=== PATIENT | male | born 1950 | race African-American/Black ===

== ENCOUNTER 2018-04-17 12:04 | Emergency (ER) | payer MEDICARE, MEDICAID ==
[~2018-04-17] VITALS: Ht 180.3 cm; Wt 75.0 kg
[~2018-04-17 12:04] MED LIST: AMLO5TAB88; BENA10TA3; MYCOC15; SIMV10TA2 PO
[2018-04-17 19:49] VITALS: BP 151/76
== END 2018-04-17 21:00 | disposition home or self-care (01) ==
LOC: ER 12:04
DX: R33.9 Retention of urine, unspecified (principal); J45.909 Unspecified asthma, uncomplicated; I10 Essential (primary) hypertension; I25.10 Atherosclerotic heart disease of native coronary artery without angina pectoris; Z86.73 Personal history of transient ischemic attack (TIA), and cerebral infarction without residual deficits
CPT/HCPCS: 51702; 99284

== ENCOUNTER 2018-05-19 15:39 | Emergency (ER) | payer MEDICARE, MEDICAID ==
[~2018-05-19] VITALS: Ht 167.6 cm; Wt 77.0 kg
[~2018-05-19 15:39] MED LIST changes: +BENA10TA10; -BENA10TA3
[2018-05-19 15:58] VITALS: BP 153/86
== END 2018-05-19 22:00 | disposition left against medical advice (07) ==
LOC: ER 17:57
DX: Z46.6 Encounter for fitting and adjustment of urinary device (principal)
CPT/HCPCS: 99281

== ENCOUNTER 2018-05-20 08:43 | Emergency (ER) | payer MEDICARE, MEDICAID ==
[~2018-05-20] VITALS: Ht 177.8 cm; Wt 75.0 kg
[2018-05-20 11:40] VITALS: BP 132/79
== END 2018-05-20 12:05 | disposition home or self-care (01) ==
LOC: ER 08:43
DX: T83.091A Other mechanical complication of indwelling urethral catheter, initial encounter (principal); R33.9 Retention of urine, unspecified; G82.20 Paraplegia, unspecified; J45.909 Unspecified asthma, uncomplicated; I25.10 Atherosclerotic heart disease of native coronary artery without angina pectoris; I10 Essential (primary) hypertension; F17.200 Nicotine dependence, unspecified, uncomplicated; Y92.89 Other specified places as the place of occurrence of the external cause; Z86.73 Personal history of transient ischemic attack (TIA), and cerebral infarction without residual deficits; Z79.899 Other long term (current) drug therapy
CPT/HCPCS: 51702; 99284; A4315

== ENCOUNTER 2018-05-24 14:20 | Emergency (ER) | payer MEDICARE, MEDICAID ==
[~2018-05-24] VITALS: Ht 165.1 cm; Wt 64.0 kg
[2018-05-24 15:11] VITALS: BP 108/63
== END 2018-05-24 15:57 | disposition left against medical advice (07) ==
LOC: ER 15:41
DX: T83.038A Leakage of other urinary catheter, initial encounter (principal); I10 Essential (primary) hypertension; Y84.6 Urinary catheterization as the cause of abnormal reaction of the patient, or of later complication, without mention of misadventure at the time of the procedure; Z79.899 Other long term (current) drug therapy; Y92.89 Other specified places as the place of occurrence of the external cause
CPT/HCPCS: 99281; 99284

== ENCOUNTER 2018-06-17 10:10 | Emergency (ER) | payer MEDICARE, MEDICAID ==
[~2018-06-17] VITALS: Ht 180.3 cm; Wt 68.0 kg
[2018-06-17 12:37] LABS: CLARITY URINE CLEAR (CLEAR); COLOR URINE YELLOW (YELLOW); KETONES URINE NEGATIVE (NEGATIVE); LEUKOCYTE ESTERASE URINE TRACE (NEGATIVE); NITRITE URINE POSITIVE (NEGATIVE); OCCULT BLOOD URINE 2+ (NEGATIVE); PROTEIN URINE TRACE (NEGATIVE); SPECIFIC GRAVITY URINE 1.015 (1.005-1.030)
[2018-06-17 13:00] VITALS: BP 131/72
[2018-06-17] MEDS ORDERED: CEFTRIAXONE 1 G PREMIX 50 ML IV ONE (13:15)
== END 2018-06-17 13:42 | disposition home or self-care (01) ==
LOC: ER 10:10
DX: N39.0 Urinary tract infection, site not specified (principal); J45.909 Unspecified asthma, uncomplicated; I10 Essential (primary) hypertension; F17.200 Nicotine dependence, unspecified, uncomplicated; F12.10 Cannabis abuse, uncomplicated
CPT/HCPCS: 51702; 81003; 87086; 99284; A4315

== ENCOUNTER 2018-07-07 13:04 | Emergency (ER) | payer MEDICARE, MEDICAID ==
[~2018-07-07] VITALS: Ht 170.2 cm; Wt 74.0 kg
[2018-07-07 14:21] LABS: CLARITY URINE CLEAR (CLEAR); KETONES URINE NEGATIVE (NEGATIVE); LEUKOCYTE ESTERASE URINE NEGATIVE (NEGATIVE); NITRITE URINE NEGATIVE (NEGATIVE); OCCULT BLOOD URINE 1+ (NEGATIVE); PROTEIN URINE NEGATIVE (NEGATIVE); SPECIFIC GRAVITY URINE 1.004 (1.005-1.030); UROBILINOGEN URINE 0.2 E.U./dL (0.2-1.0)
[2018-07-07 14:25] LABS: COLOR URINE PALE YELLOW (YELLOW)
[2018-07-07 15:46] VITALS: BP 141/78
== END 2018-07-07 15:48 | disposition home or self-care (01) ==
LOC: ER 13:04
DX: N40.1 Benign prostatic hyperplasia with lower urinary tract symptoms (principal); R33.8 Other retention of urine; J45.909 Unspecified asthma, uncomplicated; I10 Essential (primary) hypertension; F17.200 Nicotine dependence, unspecified, uncomplicated; F12.10 Cannabis abuse, uncomplicated; Z87.828 Personal history of other (healed) physical injury and trauma; Z98.890 Other specified postprocedural states
CPT/HCPCS: 51702; 81003; 99284; A4315

== ENCOUNTER 2018-07-14 04:34 | Emergency (ER) | payer MEDICARE, MEDICAID ==
[~2018-07-14] VITALS: Ht 172.7 cm; Wt 73.0 kg
[2018-07-14] MEDS ORDERED: ACETAMINOPHEN WITH CODEINE 300/30MG TABLET PO ONE (06:15)
[2018-07-14 07:42] LABS: CLARITY URINE CLEAR (CLEAR); COLOR URINE YELLOW (YELLOW); KETONES URINE NEGATIVE (NEGATIVE); LEUKOCYTE ESTERASE URINE 1+ (NEGATIVE); NITRITE URINE NEGATIVE (NEGATIVE); OCCULT BLOOD URINE TRACE (NEGATIVE); PROTEIN URINE NEGATIVE (NEGATIVE); SPECIFIC GRAVITY URINE 1.016 (1.005-1.030)
[2018-07-14 11:38] VITALS: BP 178/89
== END 2018-07-14 11:46 | disposition home or self-care (01) ==
LOC: ER 04:53
DX: S02.2XXA Fracture of nasal bones, initial encounter for closed fracture (principal); N39.0 Urinary tract infection, site not specified; B37.9 Candidiasis, unspecified; I10 Essential (primary) hypertension; N40.0 Benign prostatic hyperplasia without lower urinary tract symptoms; J45.909 Unspecified asthma, uncomplicated; F12.10 Cannabis abuse, uncomplicated; Z99.3 Dependence on wheelchair; Y04.0XXA Assault by unarmed brawl or fight, initial encounter; Y93.89 Activity, other specified; Y92.018 Other place in single-family (private) house as the place of occurrence of the external cause
CPT/HCPCS: 51702; 70450; 70486; 81003; 99285; A4315

== ENCOUNTER 2019-04-05 09:08 | Emergency (ER) | payer MEDICARE, MEDICAID ==
[~2019-04-05] VITALS: Ht 172.7 cm; Wt 84.0 kg
[2019-04-05 11:21] LABS: CLARITY URINE CLEAR (CLEAR); COLOR URINE YELLOW (YELLOW); KETONES URINE NEGATIVE (NEGATIVE); LEUKOCYTE ESTERASE URINE 2+ (NEGATIVE); NITRITE URINE NEGATIVE (NEGATIVE); OCCULT BLOOD URINE TRACE (NEGATIVE); PROTEIN URINE NEGATIVE (NEGATIVE); SPECIFIC GRAVITY URINE 1.004 (1.005-1.030); UROBILINOGEN URINE 0.2 E.U./dL (0.2-1.0)
[2019-04-05 12:02] VITALS: BP 160/83
[2019-04-18] MEDS ORDERED: NAPR-681 MT (17:15)
[2019-04-18] MEDS ORDERED: BACL-141 MT (17:15)
[2019-04-18] MEDS ORDERED: FAMO20TA8 MT (17:15)
[2019-04-18] MEDS ORDERED: GABA800T97 MT (17:15)
== END 2019-04-05 12:12 | disposition home or self-care (01) ==
LOC: ER 09:08
DX: Z46.6 Encounter for fitting and adjustment of urinary device (principal); N39.0 Urinary tract infection, site not specified; I10 Essential (primary) hypertension; J45.909 Unspecified asthma, uncomplicated; F17.210 Nicotine dependence, cigarettes, uncomplicated; Z71.6 Tobacco abuse counseling
CPT/HCPCS: 99283; 99406

== ENCOUNTER 2019-04-15 09:34 | Emergency (ER) | payer MEDICARE, MEDICAID ==
[~2019-04-15] VITALS: Ht 167.6 cm; Wt 82.0 kg
[2019-04-15] MEDS ORDERED: KETOROLAC 60MG/2ML VIAL IM STA (12:01)
[2019-04-15 13:21] VITALS: BP 140/88
[2019-04-18] MEDS ORDERED: NAPR-681 MT (17:15)
[2019-04-18] MEDS ORDERED: GABA800T97 MT (17:15)
[2019-04-18] MEDS ORDERED: BACL-141 MT (17:15)
[2019-04-18] MEDS ORDERED: FAMO20TA8 MT (17:15)
== END 2019-04-15 13:22 | disposition home or self-care (01) ==
LOC: ER 09:34
DX: M25.511 Pain in right shoulder (principal); M25.512 Pain in left shoulder; M25.571 Pain in right ankle and joints of right foot; G31.89 Other specified degenerative diseases of nervous system; I10 Essential (primary) hypertension; V03.90XA Pedestrian on foot injured in collision with car, pick-up truck or van, unspecified whether traffic or nontraffic accident, initial encounter; Y93.89 Activity, other specified; Y92.89 Other specified places as the place of occurrence of the external cause; Y99.8 Other external cause status; Z79.899 Other long term (current) drug therapy
CPT/HCPCS: 70450; 72125; 73030; 73600; 73630; 96372; 99284; J1885

== ENCOUNTER 2019-10-29 09:20 | Emergency (ER) | payer MEDICARE, MEDICAID ==
[~2019-10-29] VITALS: Ht 167.6 cm; Wt 91.0 kg
[~2019-10-29 09:20] MED LIST changes: +BACL-141 MT; -BENA10TA10; +BENA10TA74; +FAMO20TA8 MT; +GABA800T97 MT; -MYCOC15; +NAPR-681 MT; -SIMV10TA2 PO
[2019-10-29 10:00] VITALS: BP 174/96
[2019-10-29 12:39] LABS: CLARITY URINE CLEAR (CLEAR); COLOR URINE YELLOW (YELLOW); KETONES URINE NEGATIVE (NEGATIVE); LEUKOCYTE ESTERASE URINE 2+ (NEGATIVE); NITRITE URINE NEGATIVE (NEGATIVE); OCCULT BLOOD URINE 2+ (NEGATIVE); PH URINE 6.5 (4.5-8.0); PROTEIN URINE NEGATIVE (NEGATIVE); SPECIFIC GRAVITY URINE 1.011 (1.005-1.030); UROBILINOGEN URINE 0.2 E.U./dL (0.2-1.0)
== END 2019-10-29 12:55 | disposition home or self-care (01) ==
LOC: ER 09:53
DX: N39.0 Urinary tract infection, site not specified (principal); I10 Essential (primary) hypertension; J45.909 Unspecified asthma, uncomplicated; F17.200 Nicotine dependence, unspecified, uncomplicated; Z79.899 Other long term (current) drug therapy
CPT/HCPCS: 81003; 99283

== ENCOUNTER 2021-11-10 08:43 | Emergency (ER) | payer MEDICARE, MEDICAID ==
[~2021-11-10] VITALS: Ht 172.7 cm; Wt 80.0 kg
[2021-11-10 10:23] LABS: BASOPHILS % 0.5 % (0.0-2.0); CHLORIDE 104 mEq/L (98-107); EOSINOPHILS % 0.3 % (0.0-5.0); HEMATOCRIT. 47.5 % (42.0-52.0); HEMOGLOBIN. 16.2 g/dL (14.0-18.0); LYMPHOCYTES % 14.8 % (20.0-50.0); MEAN CORPUSCULAR HEMOGLOBIN 32.4 pg (28.0-32.0); MEAN CORPUSCULAR VOLUME 95.1 fL (80.0-94.0); MEAN PLATELET VOLUME 8.5 fl (7.4-10.4); NEUTROPHILS % 78.4 % (40.0-76.0); PLATELET 199 x1000/uL (130-400); RED CELL DISTRIBUTION WIDTH 13.1 % (11.6-14.6)
[2021-11-10 10:54] LABS: CLARITY URINE CLOUDY (CLEAR); COLOR URINE YELLOW (YELLOW); KETONES URINE NEGATIVE (NEGATIVE); LEUKOCYTE ESTERASE URINE 3+ (NEGATIVE); NITRITE URINE POSITIVE (NEGATIVE); OCCULT BLOOD URINE 2+ (NEGATIVE); PH URINE 5.5 (4.5-8.0); PROTEIN URINE TRACE (NEGATIVE); SPECIFIC GRAVITY URINE 1.013 (1.005-1.030)
[2021-11-10] MEDS ORDERED: CEFTRIAXONE 1 G PREMIX 50 ML IV ONE (12:00)
[2021-11-10] MEDS ORDERED: CIPR-263 MT (14:43)
[2021-11-10 16:30] VITALS: BP 135/70
[2021-11-10] MEDS ORDERED: IPRATROPIUM BROMIDE (0.02%) 0.5MG/2.5ML NEB HHN ONE (18:30)
[2021-11-10] MEDS ORDERED: ALBUTEROL (0.5%) 2.5MG/0.5ML NEB HHN ONE (18:30)
[2021-11-10] MEDS ORDERED: P50 MT (18:38)
[2021-11-10] MEDS ORDERED: PREDNISONE 20MG TABLET PO ONE (18:45)
[2021-11-11] MEDS ORDERED: CIPR-263 MT (11:01)
== END 2021-11-10 19:04 | disposition home or self-care (01) ==
LOC: ER 08:56
DX: N45.3 Epididymo-orchitis (principal); N39.0 Urinary tract infection, site not specified; J44.1 Chronic obstructive pulmonary disease with (acute) exacerbation; I10 Essential (primary) hypertension; J45.909 Unspecified asthma, uncomplicated; F17.210 Nicotine dependence, cigarettes, uncomplicated
CPT/HCPCS: 36415; 76870; 80053; 81003; 85025; 87040; 87077; 87086; 87186; 93976; 94640; 96365; 99285; J0696; J7512

== ENCOUNTER 2025-05-23 15:21 | Emergency (ER) | payer MEDICARE, MEDICAID ==
[~2025-05-23] VITALS: Ht 172.7 cm; Wt 72.0 kg
[~2025-05-23 15:21] MED LIST changes: +ALBU18HF2 PO; -AMLO5TAB88; +AMLO5TAB88 MT; +AMOX1TAB16 PO; -BENA10TA74; +DICL100G58 TP; +FINA5TAB11 MT; +GABA-290 PO; -GABA800T97 MT; +LEVO750T68 MT; -NAPR-681 MT; +TAMS-54 MT
[2025-05-23 15:26] VITALS: O2SAT 97
[2025-05-23 17:46] VITALS: BP 130/100; PULSE 66; RESP 16; TEMP 37.1; O2SAT 97
== END 2025-05-23 18:16 | disposition home or self-care (01) ==
LOC: ER 15:21 → CANBEDREQ 17:37 → ER 18:16
DX: T83.011A Breakdown (mechanical) of indwelling urethral catheter, initial encounter (principal); E11.9 Type 2 diabetes mellitus without complications; I10 Essential (primary) hypertension; J44.89 Other specified chronic obstructive pulmonary disease; N40.0 Benign prostatic hyperplasia without lower urinary tract symptoms; Z79.899 Other long term (current) drug therapy; Y92.89 Other specified places as the place of occurrence of the external cause
CPT/HCPCS: 99283

== ENCOUNTER 2025-06-26 09:07 | Inpatient (IN) | payer MEDICARE, MEDICAID ==
[2025-06-26] VITALS (8 sets, daily range): BP systolic 125–148; BP diastolic 72–85; PULSE 55–80; RESP 16–18; TEMP 36–36.418; O2SAT 93–100
[~2025-06-26] VITALS: Ht 175.3 cm; Wt 56.7 kg
[~2025-06-26 09:07] MED LIST changes: -AMOX1TAB16 PO; +LEVO-65 MT; -LEVO750T68 MT
[2025-06-26] MEDS: IPRATROPIUM BROMIDE (0.02%) 0.5MG/2.5ML NEB HHN SCH (09:53)
[2025-06-26] MEDS: ALBUTEROL (0.083%) 2.5MG/3ML NEB HHN SCH (09:53)
[2025-06-26 10:17] LABS: BASOPHILS % 0.8 % (0.0-2.0); EOSINOPHILS % 2.7 % (0.0-5.0); HEMATOCRIT. 42.2 % (42.0-52.0); HEMOGLOBIN. 13.8 g/dL (14.0-18.0); LYMPHOCYTES % 29.4 % (20.0-50.0); MEAN PLATELET VOLUME 8.3 fl (7.4-10.4); MONOCYTES % 6.6 % (2.0-8.0); NEUTROPHILS % 60.5 % (40.0-76.0); PLATELET 190 x1000/uL (130-400); RED BLOOD CELL COUNT 4.45 mill/uL (4.7-6.1); RED CELL DISTRIBUTION WIDTH 14.9 % (11.6-14.6)
[2025-06-26 10:29] LABS: CREATININE 0.8 mg/dL (0.6-1.3); UREA NITROGEN BLOOD 7 mg/dL (9-23)
[2025-06-26 10:30] LABS: TROPONIN I HIGH SENSITIVITY 16 ng/L (3.0-53)
[2025-06-26] MEDS: METHYLPREDNISOLONE SOD SUCC 125MG/2ML (ACT-O-VIAL) IV ONE (10:30)
[2025-06-26] MEDS ORDERED: ONDANSETRON HCL 4MG/2ML INJ IV PRN (11:15)
[2025-06-26] MEDS ORDERED: LEVOFLOXACIN 500MG PREMIX 100 ML IV SCH (11:15)
[2025-06-26] MEDS ORDERED: HYDROCODONE/ACETAMINOPHEN 5/325MG TABLET PO PRN (11:15)
[2025-06-26] MEDS ORDERED: ACETAMINOPHEN 325MG TABLET PO PRN (11:15)
[2025-06-26] MEDS ORDERED: MAGNESIUM/ALUMINUM HYDROXIDE/SIMETHICONE 30ML UDC PO PRN (11:15)
[2025-06-26] MEDS: CLONIDINE 0.1MG TABLET PO PRN (11:24)
[2025-06-26] MEDS: DEXT 5%/0.45% NACL 1000ML 1,000 ML IV SCH (11:57)
[2025-06-26] MEDS ORDERED: METHYLPREDNISOLONE SOD SUCC 40MG/ML (ACT-O-VIAL) IV SCH (12:00)
[2025-06-26] MEDS ORDERED: NALOXONE HCL 0.4MG/ML VIAL IV PRN (12:15)
[2025-06-26] MEDS: ENOXAPARIN 40MG/0.4ML SYR SUBCUT SCH (13:00)
[2025-06-26 13:01] LABS: TROPONIN I HIGH SENSITIVITY 6 ng/L (3.0-53)
[2025-06-26] MEDS: PANTOPRAZOLE SODIUM 40 MG/VIAL IV SCH (14:59)
[2025-06-26] MEDS: LEVOFLOXACIN 750MG PREMIX 150 ML IV SCH (14:59)
[2025-06-26] MEDS: METHYLPREDNISOLONE SOD SUCC 40MG/ML (ACT-O-VIAL) IV SCH (15:00)
[2025-06-26 16:46] LABS: TROPONIN I HIGH SENSITIVITY 11 ng/L (3.0-53)
[2025-06-26] MEDS: IPRATROPIUM/ALBUTEROL 0.5-3(2.5)MG/3ML NEB NEB SCH (17:06)
[2025-06-26] MEDS ORDERED: BACLOFEN 10MG TABLET PO PRN (17:30)
[2025-06-26] MEDS: PNEUMOCOCCAL 20-VAL CONJ-DIP CRM 0.5ML IM ONE (17:30)
[2025-06-26] MEDS: GABAPENTIN 300MG CAPSULE PO SCH (21:10)
[2025-06-27] VITALS: BP 149/73; PULSE 63; RESP 17; TEMP 35.7; O2SAT 97
[2025-06-27 04:00] VITALS: BP 167/80; PULSE 64; RESP 16; TEMP 36.2; O2SAT 98
[2025-06-27 06:57] LABS: BASOPHILS % 0.2 % (0.0-2.0); EOSINOPHILS % 0.0 % (0.0-5.0); HEMATOCRIT. 35.6 % (42.0-52.0); HEMOGLOBIN. 11.9 g/dL (14.0-18.0); LYMPHOCYTES % 14.6 % (20.0-50.0); MEAN PLATELET VOLUME 8.7 fl (7.4-10.4); MONOCYTES % 2.5 % (2.0-8.0); NEUTROPHILS % 82.7 % (40.0-76.0); PLATELET 179 x1000/uL (130-400); RED BLOOD CELL COUNT 3.81 mill/uL (4.7-6.1); RED CELL DISTRIBUTION WIDTH 14.2 % (11.6-14.6)
[2025-06-27 07:20] LABS: TROPONIN I HIGH SENSITIVITY 6 ng/L (3.0-53)
[2025-06-27 07:25] LABS: CREATININE 0.7 mg/dL (0.6-1.3); UREA NITROGEN BLOOD 10 mg/dL (9-23)
[2025-06-27 08:00] VITALS: BP 156/75; PULSE 58; RESP 18; TEMP 36.4; O2SAT 100
[2025-06-27] MEDS: TAMSULOSIN HCL 0.4MG SR CAPSULE PO SCH (09:51)
[2025-06-27] MEDS: FINASTERIDE 5MG TABLET PO SCH (09:52)
[2025-06-27] MEDS: AMLODIPINE 5MG TABLET PO SCH (09:52)
[2025-06-27 12:00] VITALS: BP 141/84; PULSE 59; RESP 18; TEMP 36.4; O2SAT 100
[2025-06-27 16:00] VITALS: BP 146/78; PULSE 66; RESP 18; TEMP 36.4; O2SAT 100
[2025-06-27] MEDS: POTASSIUM CHLORIDE 20MEQ TABLET SR PO SCH (18:20)
[2025-06-27 19:56] LABS: CLARITY URINE TURBID (CLEAR); COLOR URINE ORANGE (YELLOW); GLUCOSE URINE TRACE (NEGATIVE); KETONES URINE NEGATIVE (NEGATIVE); LEUKOCYTE ESTERASE URINE 3+ (NEGATIVE); NITRITE URINE POSITIVE (NEGATIVE); OCCULT BLOOD URINE NEGATIVE (NEGATIVE); PH URINE >=9.0 (4.5-8.0); PROTEIN URINE 3+ (NEGATIVE); SPECIFIC GRAVITY URINE 1.021 (1.005-1.030); UROBILINOGEN URINE 1.0 E.U./dL (0.2-1.0)
[2025-06-27 20:00] VITALS: BP 151/75; PULSE 61; RESP 19; TEMP 36.2; O2SAT 97
[2025-06-27 20:09] LABS: *AMPHETAMINES SCREEN URINE NEGATIVE (NEGATIVE); *BENZODIAZEPINES SCREEN URINE NEGATIVE (NEGATIVE)
[2025-06-27 20:10] LABS: *BARBITURATES SCREEN URINE NEGATIVE (NEGATIVE); *COCAINE SCREEN URINE PRESUMPTIVE POSITIVE (NEGATIVE); CANNABINOID URINE SCREEN PRESUMPTIVE POSITIVE (NEGATIVE); ECSTASY MDMA SCREEN URINE NEGATIVE (NEGATIVE); METHADONE URINE SCREEN NEGATIVE (NEGATIVE); OPIATES URINE SCREEN NEGATIVE (NEGATIVE); PHENCYCLIDINE URINE SCREEN NEGATIVE (NEGATIVE)
[2025-06-27 20:20] LABS: BACTERIA URINE 4+; RBC URINE 0-2 /hpf (0-2); SQUAMOUS EPITHELIAL CELL URINE FEW /lpf (RARE/1+)
[2025-06-27] MEDS: MORPHINE SULFATE 4 MG/ML INJ (FOR IV/IM USE) IV PRN (20:41)
[2025-06-28] VITALS (10 sets, daily range): BP systolic 132–182; BP diastolic 66–89; PULSE 55–77; RESP 16–19; TEMP 36.2–36.9; O2SAT 94–100
[2025-06-28 09:19] LABS: BASOPHILS % 0.1 % (0.0-2.0); EOSINOPHILS % 0.0 % (0.0-5.0); HEMATOCRIT. 41.5 % (42.0-52.0); HEMOGLOBIN. 13.8 g/dL (14.0-18.0); LYMPHOCYTES % 10.0 % (20.0-50.0); MEAN PLATELET VOLUME 9.0 fl (7.4-10.4); MONOCYTES % 2.7 % (2.0-8.0); NEUTROPHILS % 87.2 % (40.0-76.0); PLATELET 205 x1000/uL (130-400); RED BLOOD CELL COUNT 4.43 mill/uL (4.7-6.1); RED CELL DISTRIBUTION WIDTH 14.4 % (11.6-14.6)
[2025-06-28 09:40] LABS: CREATININE 0.7 mg/dL (0.6-1.3); UREA NITROGEN BLOOD 15 mg/dL (9-23)
[2025-06-29] VITALS (9 sets, daily range): BP systolic 102–183; BP diastolic 66–93; PULSE 17–95; RESP 17–24; TEMP 36.4–36.9; O2SAT 95–100
[2025-06-29] MEDS: ZOLPIDEM TARTRATE 5MG TABLET PO PRN (01:29)
[2025-06-29 08:12] LABS: BASOPHILS % 0.2 % (0.0-2.0); EOSINOPHILS % 0.0 % (0.0-5.0); HEMATOCRIT. 37.9 % (42.0-52.0); HEMOGLOBIN. 12.6 g/dL (14.0-18.0); LYMPHOCYTES % 15.9 % (20.0-50.0); MEAN PLATELET VOLUME 9.6 fl (7.4-10.4); MONOCYTES % 5.9 % (2.0-8.0); NEUTROPHILS % 78.0 % (40.0-76.0); PLATELET 175 x1000/uL (130-400); RED BLOOD CELL COUNT 4.04 mill/uL (4.7-6.1); RED CELL DISTRIBUTION WIDTH 14.5 % (11.6-14.6)
[2025-06-29 08:42] LABS: CREATININE 0.7 mg/dL (0.6-1.3); UREA NITROGEN BLOOD 10 mg/dL (9-23)
[2025-06-29] MEDS ORDERED: METH4TAB95 MT (10:53)
[2025-06-29] MEDS ORDERED: LEVO-65 MT (10:53)
[2025-06-29] MEDS ORDERED: ALBU18HF2 PO (10:53)
[2025-06-29] MEDS ORDERED: AMLO5TAB88 MT (10:53)
== END 2025-06-29 21:06 | disposition home or self-care (01) | DRG 189 ==
LOC: ER 09:07 → 8WST 10:36 → EDBEDREQ 10:42 → EDBEDREQTM 10:42 → ENRESERV 12:29
PROVIDERS: ADMIT Internal Medicine; ATTEND Internal Medicine
DX: J96.01 Acute respiratory failure with hypoxia (principal); J44.1 Chronic obstructive pulmonary disease with (acute) exacerbation; J96.02 Acute respiratory failure with hypercapnia; I10 Essential (primary) hypertension; N40.0 Benign prostatic hyperplasia without lower urinary tract symptoms; E11.9 Type 2 diabetes mellitus without complications; F17.210 Nicotine dependence, cigarettes, uncomplicated; D64.9 Anemia, unspecified; Z79.899 Other long term (current) drug therapy
CPT/HCPCS: 36415; 71045; 80048; 80305; 81003; 83880; 84443; 84484; 85025; 93005; 93970; 94070; 94640; 94664; 94760; 96374; 99291; A4606; J1650; J1956; J2470; J2919